=== PATIENT | female | born 1995 | race Caucasian/White ===

== ENCOUNTER → 2017-06-03 | Day surgery (SDC) | payer OTHER ==
[~2017-06-03] VITALS: Ht 157.5 cm; Wt 69.9 kg
[~2017-06-03] MED LIST: BUPIVACAINE-EPI 0.5%-1:200000 50 ML VIAL. ONE; DEXAMETHASONE SOD PHOS 20 MG/5 ML VIAL. ONE; DOCU50CA9 PO; GLUCAGON,HUMAN RECOMBINANT 1 MG/ML VIAL. ONE; GLYCOPYRROLATE 1 MG/5 ML VIAL. ONE; IOHEXOL 300 MG/ML 50 ML VIAL. ONE; IV RINGERS,LACTATED 1000ML 1,000 ML IV SCH; LIDOCAINE 1% PF 2 ML VIAL. ID PRN; LIDOCAINE 2% PF Vial for OR 5 ML VIAL. ONE; MIDAZOLAM HCL/PF 2 MG/2 ML VIAL. IV PRN; MIDAZOLAM HCL/PF 2 MG/2 ML VIAL. ONE; NEOSTIGMINE 10 MG/10 ML VIAL. ONE; ONDANSETRON PF 4 MG/2 ML VIAL. ONE; OXYC-323 PO; PROPOFOL 20 ML IV ONE; ROCURONIUM 100 MG/10 ML VIAL. ONE; SCOP1PAT TP; SCOPOLAMINE 1.5MG PATCH. TD ONE; SEVOFLURANE 61 TO 120 MINUTES. IH ONE; SURGICEL HEMOSTAT 4X8 EACH. ONE; fentaNYL PF VIAL 100 MCG/2 ML VIAL IV PRN; fentaNYL PF VIAL 100 MCG/2 ML VIAL ONE; fentaNYL PF VIAL 250 MCG/5 ML VIAL ONE; oxyCODONE/APAP 5/325 1 TAB TABLET PO ONE
[2017-06-03 07:06] LABS: NEG OBC UR NEG; POS OBC UR POS
[2017-06-03 07:22] LABS: BASO # 0.1 x10^3/uL (0.0-0.2); BASO % 1 % (0-3); EOS % 4 % (0-3); HEMATOCRIT 39.5 % (36.0-47.0); HEMOGLOBIN 13.7 g/dL (12.0-15.5); LYMPH # 2.4 x10^3/uL (1.0-4.8); LYMPH % 37 % (24-48); MEAN CORPUSCULAR HEMOGLOBIN 29 pg (25-35); MEAN CORPUSCULAR HGB CONC 35 g/dL (31-37); MEAN CORPUSCULAR VOLUME 85 fL (79-100); MONO % 12 % (0-9); NEUT % 47 % (31-73); PLATELET COUNT 344 x10^3/uL (140-400); RED BLOOD COUNT 4.65 x10^6/uL (3.50-5.40); RED CELL DISTRIBUTION WIDTH 12.7 % (11.5-14.5); WHITE BLOOD COUNT 6.5 x10^3/uL (4.0-11.0)
[2017-06-03 07:32] LABS: CALCIUM 8.8 mg/dL (8.5-10.1); CREATININE 0.7 mg/dL (0.6-1.0); GFR 104.6; POTASSIUM 3.8 mmol/L (3.5-5.1)
[2017-06-03 07:37] LABS: TOTAL BILIRUBIN 0.8 mg/dL (0.2-1.0)
--- NOTE | 2017-06-03 07:50 | PDOC1 ---
History and Physical Date of Admission Date of Admission DATE: 06/03/17 TIME: 07:44 Identification/Chief Complaint Chief Complaint RUQ pain after meals Problems: Source Source: Chart review, Patient History of Present Illness History of Present Illness Tiesha is a 21 yo female who for the last two months or so has had post prandial RUQ pain, particularly after eating "fast food". GI eval including and EGD, US and PIPIDA were all negative. Past Medical History Cardiovascular: No pertinent hx Pulmonary: No pertinent hx Hepatobiliary: No pertinent hx Psych: Anxiety, Depression Past Surgical History Past Surgical History: Tonsillectomy, Other (ACL repair) Family History Family History: No Significant Social History Smoke: Quit ALCOHOL: occassional Current Medications Current Medications Current Medications Cefazolin Sodium/ Dextrose 50 ml @ 100 mls/hr 1X PREOP PRN IV PRIOR TO PROCEDURE; Start 06/03/17 at 07:00; Stop 06/04/17 at 06:59 Scopolamine (Transderm-Scop) 1 patch 1X ONCE TD Last administered on 07:24; Start 06/03/17 at 07:30; Stop 06/03/17 at 07:31; Status DC Midazolam HCl (Versed) 2 mg PRN 1X PRN IV PRIOR TO PROCEDURE; Start 06/03/17 at 07:30; Stop 06/04/17 at 07:29 Fentanyl Citrate (Fentanyl 2ml Vial) 25 mcg PRN Q5MIN PRN IV X 2 DOSES FOR PAIN ; Start 06/03/17 at 07:30; Stop 06/04/17 at 07:29 Fentanyl Citrate (Fentanyl 2ml Vial) 50 mcg PRN Q5MIN PRN IV X 2 DOSES FOR PAIN ; Start 06/03/17 at 07:30; Stop 06/04/17 at 07:29 Ringer's Solution 1,000 ml @ 125 mls/hr Q8H IV Last administered on 06/03/17 07:21; Start 06/03/17 at 07:20; Stop 06/03/17 at 19:19 Lidocaine HCl (Xylocaine-Mpf 1% Vial) 2 ml 1X PRN PRN ID IV START; Start at 07:30; Stop 06/04/17 at 07:29 Scopolamine (Transderm-Scop) 1 patch KMED ONCE TD ; Start 06/03/17 at 07:21; Stop 06/03/17 at 07:22; Status DC Midazolam HCl (Versed) 2 mg STK-MED ONCE .ROUTE ; Start 06/03/17 at 07:41; Stop 06/03/17 at 07:42; Status DC Fentanyl Citrate (Fentanyl 5ml Vial) 250 mcg STK-MED ONCE .ROUTE ; Start at 07:41; Stop 06/03/17 at 07:42; Status DC Rocuronium Fortuna (Zemuron) 100 mg STK-MED ONCE .ROUTE ; Start 06/03/17 at 07: 41; Stop 06/03/17 at 07:42; Status DC Lidocaine HCl (Lidocaine Pf 2% Vial) 5 ml STK-MED ONCE .ROUTE ; Start 06/03/17 at 07:41; Stop 06/03/17 at 07:42; Status DC Propofol 20 ml @ As Directed STK-MED ONCE IV ; Start 06/03/17 at 07:41; Stop at 07:42; Status DC Dexamethasone Sodium Phosphate (Decadron) 20 mg STK-MED ONCE .ROUTE ; Start at 07:41; Stop 06/03/17 at 07:42; Status DC Ondansetron HCl (Zofran) 4 mg STK-MED ONCE .ROUTE ; Start 06/03/17 at 07:41; Stop 06/03/17 at 07:42; Status DC Cellulose 1 each STK-MED ONCE .ROUTE ; Start 06/03/17 at 07:42; Stop 06/03/17 at 07:43; Status DC Iohexol (Omnipaque 300 Mg/ml) 50 ml STK-MED ONCE .ROUTE ; Start 06/03/17 at 07: 42; Stop 06/03/17 at 07:43; Status DC Bupivacaine HCl/ Epinephrine Bitart (Marcaine-Epi 0.5%-1:[id number]) 50 ml STK-MED ONCE .ROUTE ; Start 06/03/17 at 07:42; Stop 06/03/17 at 07:43; Status DC Glucagon (Glucagen) 1 mg STK-MED ONCE .ROUTE ; Start 06/03/17 at 07:42; Stop at 07:43; Status DC Allergies Allergies: Coded Allergies: No Known Drug Allergies (Unverified , 06/03/17) ROS Review of System negative with exception of present complaints Physical Exam General: Alert, Oriented X3, Cooperative, No acute distress HEENT: Atraumatic, EOMI Lungs: Clear to auscultation Heart: RRR Abdomen: Soft, Other (minimally TTP in the epigastrium, RUQ) Extremities: No clubbing, No cyanosis Skin: No rashes, No breakdown Neuro: Normal speech Psych/Mental Status: Mental status NL Vitals Vitals Vital Signs Date Time Temp Pulse Resp B/P (MAP) Pulse Ox O2 Delivery O2 Flow Rate FiO2 06/03/17 06:58 98.2 76 18 113/72 97 Room Air 98.2 Labs Labs Laboratory Tests Test 06/03/17 06:44 06/03/17 07:10 Urine Test Negative (NEG) White Blood Count 6.5 x10^3/uL (4.0-11.0) Red Blood Count 4.65 x10^6/uL (3.50-5.40) Hemoglobin 13.7 g/dL (12.0-15.5) Hematocrit 39.5 % (36.0-47.0) Mean Corpuscular Volume 85 fL (79-100) Mean Corpuscular Hemoglobin 29 pg (25-35) Mean Corpuscular Hemoglobin Concent 35 g/dL (31-37) Red Cell Distribution Width 12.7 % (11.5-14.5) Platelet Count 344 x10^3/uL (140-400) Neutrophils (%) (Auto) 47 % (31-73) Lymphocytes (%) (Auto) 37 % (24-48) Monocytes (%) (Auto) 12 % (0-9) Eosinophils (%) (Auto) 4 % (0-3) Basophils (%) (Auto) 1 % (0-3) Neutrophils # (Auto) 3.0 x10^3uL (1.8-7.7) Lymphocytes # (Auto) 2.4 x10^3/uL (1.0-4.8) Monocytes # (Auto) 0.7 x10^3/uL (0.0-1.1) Eosinophils # (Auto) 0.2 x10^3/uL (0.0-0.7) Basophils # (Auto) 0.1 x10^3/uL (0.0-0.2) Sodium Level 140 mmol/L (136-145) Potassium Level 3.8 mmol/L (3.5-5.1) Chloride Level 103 mmol/L (98-107) Carbon Dioxide Level 29 mmol/L (21-32) Anion Gap 8 (6-14) Blood Urea Nitrogen 16 mg/dL (7-20) Creatinine 0.7 mg/dL (0.6-1.0) Estimated GFR (Cockcroft-Gault) 104.6 Glucose Level 85 mg/dL (70-99) Calcium Level 8.8 mg/dL (8.5-10.1) Total Bilirubin 0.8 mg/dL (0.2-1.0) Albumin 4.0 g/dL (3.4-5.0) Laboratory Tests Test 06/03/17 06:44 06/03/17 07:10 Urine Test Negative (NEG) White Blood Count 6.5 x10^3/uL (4.0-11.0) Red Blood Count 4.65 x10^6/uL (3.50-5.40) Hemoglobin 13.7 g/dL (12.0-15.5) Hematocrit 39.5 % (36.0-47.0) Mean Corpuscular Volume 85 fL (79-100) Mean Corpuscular Hemoglobin 29 pg (25-35) Mean Corpuscular Hemoglobin Concent 35 g/dL (31-37) Red Cell Distribution Width 12.7 % (11.5-14.5) Platelet Count 344 x10^3/uL (140-400) Neutrophils (%) (Auto) 47 % (31-73) Lymphocytes (%) (Auto) 37 % (24-48) Monocytes (%) (Auto) 12 % (0-9) Eosinophils (%) (Auto) 4 % (0-3) Basophils (%) (Auto) 1 % (0-3) Neutrophils # (Auto) 3.0 x10^3uL (1.8-7.7) Lymphocytes # (Auto) 2.4 x10^3/uL (1.0-4.8) Monocytes # (Auto) 0.7 x10^3/uL (0.0-1.1) Eosinophils # (Auto) 0.2 x10^3/uL (0.0-0.7) Basophils # (Auto) 0.1 x10^3/uL (0.0-0.2) Sodium Level 140 mmol/L (136-145) Potassium Level 3.8 mmol/L (3.5-5.1) Chloride Level 103 mmol/L (98-107) Carbon Dioxide Level 29 mmol/L (21-32) Anion Gap 8 (6-14) Blood Urea Nitrogen 16 mg/dL (7-20) Creatinine 0.7 mg/dL (0.6-1.0) Estimated GFR (Cockcroft-Gault) 104.6 Glucose Level 85 mg/dL (70-99) Calcium Level 8.8 mg/dL (8.5-10.1) Total Bilirubin 0.8 mg/dL (0.2-1.0) Albumin 4.0 g/dL (3.4-5.0) Images Images US and PIPIDA scans reviewed VTE Prophylaxis Ordered VTE Prophylaxis Devices: Yes VTE Pharmacological Prophylaxi: No Assessment/Plan Assessment/Plan RUQ pain Discussed risks of l/s cholecystectomy including, but not limited to bleeding, infection, injury to bowel, liver, bile ducts with resultant bile leak or bile blockage requiring further surgery. Also explained possible need for an "open" procedure or having diarrhea post op. We also talked about how she could continue to have symptoms despite having her GB out. She understands and would like to proceed. FRANKIE GORDON MD Jun 03, 2017 07:50
--- NOTE | 2017-06-03 08:45 | RAD ---
EXAM: Intraoperative cholangiogram. HISTORY: Intraoperative cholangiogram with cholecystectomy. COMPARISON: None. FINDINGS: 3 fluoroscopic images are obtained intraoperatively during injection of the cystic duct remnant after cholecystectomy. There are no filling defects to suggest retained stones. The common duct is not dilated. Fluoroscopy time 0.12 minutes. IMPRESSION: No evidence of retained stones.
--- NOTE | 2017-06-03 09:08 | DISCH ---
DISCHARGE INSTRUCTIONS Condition on Discharge Condition on Discharge: Stable Activity After Discharge Activity Instructions for Disc: Resume previous activity, Activity as tolerated , Avoid exertion Driving Instructions after Dis: Do not drive (3-4 days) Diet after Discharge Diet after Discharge: Regular Wound Incision Care Other wound/incision instructi: january showsaturday Follow-Up Follow up with: Akil next week FRANKIE GORDON MD Jun 03, 2017 09:08
[2017-06-03] MEDS: fentaNYL PF VIAL 100 MCG/2 ML VIAL IV PRN ×4 (09:09→10:17)
--- NOTE | 2017-06-03 09:10 | PDOC ---
BRIEF OPERATIVE NOTE Date: Jun 03, 2017 Pre-Op Diagnosis RUQ pain Post-Op Diagnosis same Procedure Performed l/s cholecystectomy with cholangiograms Surgeon Akil Anesthesia Type: General Blood Loss 25cc IV Fluid 1100cc Specimens Obtained GB Findings supple GB, normal grams Complications none OPerative Note Wk # [id number] FRANKIE GORDON MD Jun 03, 2017 09:10
--- NOTE | 2017-06-03 10:23 | OP ---
DATE OF SURGERY: 06/03/2017 PREOPERATIVE DIAGNOSIS: Right upper quadrant pain. POSTOPERATIVE DIAGNOSIS: Right upper quadrant pain. PROCEDURE: Laparoscopic cholecystectomy with cholangiogram. SURGEON: Frankie Gordon MD ANESTHESIA: General endotracheal. ESTIMATED BLOOD LOSS: 25. INTRAVENOUS FLUIDS: 1100. INDICATIONS: The patient is a 21-year-old who has had an extensive GI evaluation including EGD, gallbladder ultrasound, PIPIDA scan with ejection fraction. These tests were all basically negative; however, she has had persistent right upper quadrant pain, with nausea particularly after eating "fast foods" and she is requesting cholecystectomy. OPERATIVE FINDINGS: The liver was smooth and sharp. The gallbladder was supple. Cholangiograms were normal. Visual inspection of the remainder of the abdomen failed to reveal any abnormalities. DESCRIPTION OF PROCEDURE: The patient brought to the operating suite, given a general endotracheal anesthetic and the abdomen prepped and draped in usual sterile fashion. An infraumbilical incision was infiltrated with local anesthetic. Incision made and a 5 mm Visiport used to gain access into the abdominal cavity. Pneumoperitoneum established. Camera was inserted and inspection carried out with results as noted above. With the table in reverse Trendelenburg rolled to the left, the epigastric, midclavicular, and lateral ports were placed under direct vision. The lateral port location was used for an "alligator" grasper. The gallbladder was retracted superolaterally and the cystic duct and cystic artery were carefully exposed. The cystic duct was clipped on the gallbladder side. Cholangiograms were made. These were normal. In light of this, the catheter was removed. The cystic duct was clipped x 3 and divided, taking care to avoid injury or compromise of the common duct. Cystic artery was isolated, clipped and divided and the gallbladder freed from the bed with cautery dissection and placed in an EndoCatch bag. Table returned to level. Gallbladder delivered through the epigastric incision. Epigastric incision closed with interrupted 0 Vicryl suture. With intraabdominal pressure at 6 cm of water, no bleeding was seen from the epigastric closure or from the midclavicular port site after its removal or from the location of the previously placed "alligator" grasper. Abdomen decompressed, camera slowly removed, no bleeding seen. Skin incisions closed with subcuticular 4-0 Monocryl. Steri-Strips and sterile dressings applied. The patient awakened from her anesthetic and taken to the recovery room in satisfactory condition. FRANKIE GORDON MD DR: TARA/kathryn JOB#: [id number] / [id number]
[2017-06-03 11:10] VITALS: BP 111/60
--- NOTE | 2017-06-04 15:25 | PATHOLOGY ---
PATHOLOGY REPORT * * * * * * * * FINAL DIAGNOSIS: Gallbladder, "gallbladder and contents," cholecystectomy: - Consistent with chronic cholecystitis. ([facility]:mgr; 06/04/2017) REPORT ELECTRONICALLY SIGNED BY: Masoud Brady M.D. DATE/TIME: 06/04/2017 15:24 * * * * * * * * GROSS PATHOLOGY: Received in formalin labeled "Nolan Humphrey, gallbladder and contents," is a 5.3 x 2.8 x 2.3 cm, intact gallbladder with dark purple cuenca serosal surfaces. Opening the gallbladder reveals landon brown, velvety mucosa and an average wall thickness of 0.3 cm. Calculi are not present and no masses are noted grossly. [employer] Developer sections from the body and fundus are submitted along with the proximal margin in cassette A1. ([facility]; 06/03/17) INITIAL CPT CODE(S): A; 66137 Professional services performed [place] [address] Technical services performed by [facility] at [address] [place] [address]. SPECIMEN(S) RECEIVED: A.Gallbladder with contents CLINICAL HISTORY: Biliary dyskinesia, right upper quadrant pain PATIENT: NOLAN HUMPHREY /AGE: 4 1995 (Age: 21) PATIENT #: [id number] ALT CASE #: SPECIMEN COLLECTION DATE: 06/03/2017 SPECIMEN RECEIVED DATE: 06/03/2017 [facility] - [address] [place] [address] - PHONE: [phone] * * * END OF REPORT * * *
== END | disposition home or self-care (01) ==
LOC: SURG 06:23
PROVIDERS: ATTEND Surgery
DX: K82.8 Other specified diseases of gallbladder (principal); K81.1 Chronic cholecystitis; K21.9 Gastro-esophageal reflux disease without esophagitis; F17.200 Nicotine dependence, unspecified, uncomplicated; Z72.89 Other problems related to lifestyle; Z98.890 Other specified postprocedural states
CPT/HCPCS: 36415; 47563; 74300; 80048; 81025; 82040; 82247; 85025; C1769; J0690; J1100; J2250; J2405; J2704; J2710; J3010; J3490; J7030; J7120; Q9967; 88304; J1610; J2001

== ENCOUNTER 2019-06-27 12:45 | Emergency (ER) | payer OTHER ==
[~2019-06-27] VITALS: Ht 162.6 cm; Wt 68.0 kg
[~2019-06-27 12:45] MED LIST changes: -BUPIVACAINE-EPI 0.5%-1:200000 50 ML VIAL. ONE; -DEXAMETHASONE SOD PHOS 20 MG/5 ML VIAL. ONE; -GLUCAGON,HUMAN RECOMBINANT 1 MG/ML VIAL. ONE; -GLYCOPYRROLATE 1 MG/5 ML VIAL. ONE; -IOHEXOL 300 MG/ML 50 ML VIAL. ONE; -IV RINGERS,LACTATED 1000ML 1,000 ML IV SCH; -LIDOCAINE 1% PF 2 ML VIAL. ID PRN; -LIDOCAINE 2% PF Vial for OR 5 ML VIAL. ONE; -MIDAZOLAM HCL/PF 2 MG/2 ML VIAL. IV PRN; -MIDAZOLAM HCL/PF 2 MG/2 ML VIAL. ONE; -NEOSTIGMINE 10 MG/10 ML VIAL. ONE; -ONDANSETRON PF 4 MG/2 ML VIAL. ONE; -OXYC-323 PO; +OXYC1TAB15 PO; -PROPOFOL 20 ML IV ONE; -ROCURONIUM 100 MG/10 ML VIAL. ONE; -SCOP1PAT TP; +SCOP1PAT11 TP; -SCOPOLAMINE 1.5MG PATCH. TD ONE; -SEVOFLURANE 61 TO 120 MINUTES. IH ONE; -SURGICEL HEMOSTAT 4X8 EACH. ONE; -fentaNYL PF VIAL 100 MCG/2 ML VIAL IV PRN; -fentaNYL PF VIAL 100 MCG/2 ML VIAL ONE; -fentaNYL PF VIAL 250 MCG/5 ML VIAL ONE; -oxyCODONE/APAP 5/325 1 TAB TABLET PO ONE
[2019-06-27 13:02] VITALS: BP 143/83
--- NOTE | 2019-06-27 13:52 | RAD ---
Exam performed: X-ray left fifth digit. HISTORY: Trauma. DATE OF SERVICE: 06/27/2019. COMPARISON: None available FINDINGS: Single AP view of the left hand and lateral and oblique views of the fifth digit is obtained. Normal alignment is preserved. There is no acute fracture or dislocation. There is mild soft tissue swelling, no foreign body seen. IMPRESSION: Mild soft tissue swelling without underlying bony abnormality Electronically signed by: Marsha Garcia MD (06/27/2019 1:49 PM) [facility]
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
== END 2019-06-27 14:56 | disposition home or self-care (01) ==
LOC: ER 12:45
DX: S60.052A Contusion of left little finger without damage to nail, initial encounter (principal); Z90.49 Acquired absence of other specified parts of digestive tract; X58.XXXA Exposure to other specified factors, initial encounter; Y93.89 Activity, other specified; Y92.89 Other specified places as the place of occurrence of the external cause; Y99.0 Civilian activity done for income or pay
CPT/HCPCS: 73140; 99284